=== PATIENT | female | born 1965 | race Caucasian/White ===

== ENCOUNTER 2020-09-06 08:47 | Emergency (ER) | payer BC ==
--- NOTE | 2020-09-06 09:02 | EDM.PDOC ---
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 Mild intermittent SOB. No GI symptoms. Has HLD,and Migraines,stable. Non smoker. L arm, shoulder & neck Pain Score (Numeric/FACES): 3 - Related Data Allergies Allergy/AdvReac Type Severity Reaction Status Date / Time Penicillins Allergy Rash Verified 09/06/20 09:05 Home Meds: Home Meds Multivitamin [One-Daily Multi-Vitamin] 1 each PO BEDTIME 09/06/20 [History] Rizatriptan [Maxalt [employer]] 10 mg PO ASDIRECTED PRN 09/06/20 [History] Rosuvastatin [Crestor] 20 mg PO BEDTIME 09/06/20 [History] ED ROS GENERAL - Review of Systems Review Of Systems: Comprehensive ROS is negative, except as noted in HPI. ED EXAM, GENERAL - Physical Exam Exam: See Below Exam Limited By: No Limitations General Appearance: Alert, WD/WN, No Apparent Distress Ears: Normal External Exam Ear Exam: Bilateral Ear: Auricle Normal, Canal Normal, TM normal Nose: Normal Inspection Throat/Mouth: Normal Inspection Head: Atraumatic Neck: Normal Inspection Respiratory/Chest: No Respiratory Distress, Lungs Clear Cardiovascular: Normal Peripheral Pulses, Regular Rate, Rhythm, No Edema #1 Interpretation EKG Date: 09/06/20 Rhythm: NSR [place]: Normal Course - Vital Signs Last Recorded V/S: Last Vital Signs Temp 96.9 F 09/06/20 08:49 Pulse 101 H 09/06/20 12:45 Resp 20 09/06/20 12:45 BP 128/63 09/06/20 12:45 Pulse Ox 98 09/06/20 12:45 - Orders/Labs/Meds Labs: Laboratory Tests 09/06/20 09/06/20 09/06/20 Range/Units 08:55 08:55 08:55 WBC 6.7 (3.0-10.3) x10-3/uL RBC 4.46 (3.60-5.20) x10(6)uL Hgb 13.5 (11.4-15.5) g/dL Hct 40.0 (34.2-48.2) % MCV 89.6 (76.7-100.5) fL MCH 30.2 (23.9-33.9) pg MCHC 33.7 (31.9-34.8) g/dL RDW 12.2 L (12.3-16.5) % Plt Count 278 (151-488) x10(3)uL MPV 7.6 (7.1-12.4) fL Neut % (Auto) 55.2 (30.8-76.2) % Lymph % (Auto) 31.3 (18.4-52.1) % [place] % (Auto) 11.4 (4.4-15.7) % Eos % (Auto) 1.6 (0.6-8.1) % Baso % (Auto) 0.5 (0.2-1.5) % Neut # (Auto) 3.7 (1.5-6.3) x10-3/uL Lymph # (Auto) 2.1 (1.0-4.4) x10-3/uL [place] # (Auto) 0.8 (0.3-1.0) x10-3/uL Eos # (Auto) 0.1 (0.0-0.8) x10-3/uL Baso # (Auto) 0.0 (0.0-0.1) x10-3/uL D-Dimer, Quantitative (0.0-0.59) mg/LFEU Sodium 140 (135-145) mmol/L Potassium 3.9 (3.5-5.3) mmol/L Chloride 101 (100-110) mmol/L Carbon Dioxide 31 (21-32) mmol/L BUN 15 (7-18) mg/dL Creatinine 0.7 (0.55-1.02) mg/dL Est Cr Clr Drug Dosing 75.12 mL/min Estimated GFR (MDRD) > 60 (>60) BUN/Creatinine Ratio 21.4 H (9-20) Glucose 125 H (80-116) mg/dL Calcium 9.2 (8.6-10.2) mg/dL Total Bilirubin 0.6 (0.1-1.3) mg/dL AST 33 H (5-25) IU/L ALT 54 H (12-36) U/L Alkaline Phosphatase 74 (56-112) IU/L Troponin I 9.0 (4.0-60.3) pg/mL Total Protein 7.4 (6.0-8.0) g/dL Albumin 3.5 (3.5-5.2) g/dL Globulin 3.9 g/dL Albumin/Globulin Ratio 0.9 TSH, Ultra Sensitive < 0.01 L (0.36-3.74) IU/mL 09/06/20 09/06/20 Range/Units 08:55 11:55 WBC (3.0-10.3) x10-3/uL RBC (3.60-5.20) x10(6)uL Hgb (11.4-15.5) g/dL Hct (34.2-48.2) % MCV (76.7-100.5) fL MCH (23.9-33.9) pg MCHC (31.9-34.8) g/dL RDW (12.3-16.5) % Plt Count (151-488) x10(3)uL MPV (7.1-12.4) fL Neut % (Auto) (30.8-76.2) % Lymph % (Auto) (18.4-52.1) % [place] % (Auto) (4.4-15.7) % Eos % (Auto) (0.6-8.1) % Baso % (Auto) (0.2-1.5) % Neut # (Auto) (1.5-6.3) x10-3/uL Lymph # (Auto) (1.0-4.4) x10-3/uL [place] # (Auto) (0.3-1.0) x10-3/uL Eos # (Auto) (0.0-0.8) x10-3/uL Baso # (Auto) (0.0-0.1) x10-3/uL D-Dimer, Quantitative 0.98 H (0.0-0.59) mg/LFEU Sodium (135-145) mmol/L Potassium (3.5-5.3) mmol/L Chloride (100-110) mmol/L Carbon Dioxide (21-32) mmol/L BUN (7-18) mg/dL Creatinine (0.55-1.02) mg/dL Est Cr Clr Drug Dosing mL/min Estimated GFR (MDRD) (>60) BUN/Creatinine Ratio (9-20) Glucose (80-116) mg/dL Calcium (8.6-10.2) mg/dL Total Bilirubin (0.1-1.3) mg/dL AST (5-25) IU/L ALT (12-36) U/L Alkaline Phosphatase (56-112) IU/L Troponin I 17.7 (4.0-60.3) pg/mL Total Protein (6.0-8.0) g/dL Albumin (3.5-5.2) g/dL Globulin g/dL Albumin/Globulin Ratio TSH, Ultra Sensitive (0.36-3.74) IU/mL Meds: Medications Discontinued Medications Generic Name Dose Route Start Last Admin Trade Name Freq PRN Reason Stop Dose Admin Aspirin 324 mg 09/06/20 09:16 09/06/20 09:15 Aspirin 81 Mg Tab.Chew PO 09/06/20 09:17 324 mg ONETIME ONE Administration Iopamidol 75 ml 09/06/20 10:55 09/06/20 11:05 Iopamidol 755 Mg/Ml 75 Ml Bottle IV 09/06/20 10:56 75 ml ASDIRECTED ONE Administration Departure - Departure Time of Disposition: 19:16 Disposition: Home, Self-Care 01 Clinical Impression: Chest pain Qualifiers: Chest pain type: unspecified Qualified Code(s): R07.9 - Chest pain, unspecified - Discharge Information Instructions: Nonspecific Chest Pain, Adult, [id number] Referrals: Luis Franklin MD [Primary Care Provider] - Forms: ED Department Discharge Additional Instructions: Activity as tolerated. Tylenol as needed for pain. Follow up with Dr. Franklin next week at clinic, may need stress test. - Problem List & Annotations (1) Chest pain SNOMED Code(s): 52626326 Code(s): R07.9 - CHEST PAIN, UNSPECIFIED Status: Acute Qualifiers: Chest pain type: unspecified Qualified Code(s): R07.9 - Chest pain, unspecified - Problem List Review Problem List Initiated/Reviewed/Updated: Yes - Assessment/Plan Plan: Trop neg x 3. EKG neg. CXR neg. DC home. Consider stress test in the next few days
[2020-09-06] MEDS ORDERED: Aspirin 81 MG Tab.Chew PO ONE (09:16)
[2020-09-06] MEDS ORDERED: Iopamidol 755 Mg/ML 75 ML Bottle IV ONE (10:55)
--- NOTE | 2020-09-06 18:23 | CR ---
INDICATION: Chest pain. Shortness of breath. CHEST, ONE VIEW: AP portable upright view of the chest was obtained 09/06/20 - no comparison. Overlying EKG leads are noted. The heart is normal in size and shape. The aorta is minimally tortuous. An active infiltrate or effusion was not identified. No pneumothorax was seen. IMPRESSION: No acute process. MTDD
== END 2020-09-06 12:37 | disposition home or self-care (01) ==
LOC: FB.ED 08:47
DX: R07.9 Chest pain, unspecified (principal); Z88.0 Allergy status to penicillin; Z79.899 Other long term (current) drug therapy
CPT/HCPCS: 36415; 71045; 71275; 80053; 84443; 84484; 85025; 85379; 93005; 93010; 99284; 99285-25; A9270-GY; Q9967